=== PATIENT | male | born 1945 | race Caucasian/White ===

== ENCOUNTER 2017-01-16 21:43 | Outpatient (CLI) | payer BC, MEDICARE | END 2017-01-16 21:44 | disposition short-term general hospital (02) | LOC: EMS 21:43 | PROVIDERS: ATTEND Surgery | DX: R42 Dizziness and giddiness (principal); R11.0 Nausea; R47.9 Unspecified speech disturbances; R25.2 Cramp and spasm | CPT/HCPCS: A0170; A0425; A0427 ==

== ENCOUNTER 2017-12-05 08:35 | Outpatient (CLI) | payer BC, MEDICARE ==
[2017-12-05 11:40] LABS: ALBUMIN 4.1 g/dL (3.2-5.5); ALBUMIN/GLOBULIN RATIO 1.4 (1.0-2.2); ALKALINE PHOSPHATASE 66 IU/L (42-121); ALT ALANINE AMINOTRANSFERASE 21 IU/L (10-60); AST ASPARTATE AMINOTRANSFERASE 29 IU/L (10-42); BILIRUBIN,TOTAL 0.9 mg/dL (0.2-1.0); BUN - BLOOD UREA NITROGEN 13 mg/dL (6-20); CALCIUM 9.1 mg/dL (8.5-10.3); CARBON DIOXIDE - CO2 27 mmol/L (21-32); CHLORIDE 100 mmol/L (101-111); CHOL/HDL RATIO 2.6 (<5.0); CHOLESTEROL 154 mg/dL; CREATININE 0.8 mg/dL (0.6-1.2); CRP HIGH SENSITIVITY 2.2 mg/L; GFR - MDRD 94 (>89); GLUCOSE 93 mg/dL (70-100); HDL CHOLESTEROL 59 mg/dL; SODIUM 134 mmol/L (135-145)
[2017-12-05 11:41] LABS: PSA FREE 0.26 ng/mL (0.16-2.81); PSA TOTAL 1.2 ng/mL (0.000-2.000)
[2017-12-05 12:02] LABS: LDL CHOLESTEROL,DIRECT 74 mg/dL; LDLD/HDL RATIO 1.3 (<3.6)
[2017-12-08 20:11] LABS: HDL LARGE 4423 nmol/L (3382-9376); LDL PARTICLE NUMBER 1001 nmol/L (732-2035); LDL PATTERN A Pattern (A); LDL SMALL 154 nmol/L (85-473)
== END 2017-12-05 08:36 | disposition home or self-care (01) ==
LOC: LAB.F 08:35
PROVIDERS: ATTEND Internal Medicine Cardiovascular Disease
DX: I10 Essential (primary) hypertension (principal); E78.5 Hyperlipidemia, unspecified; I25.10 Atherosclerotic heart disease of native coronary artery without angina pectoris; I65.23 Occlusion and stenosis of bilateral carotid arteries
CPT/HCPCS: 36415; 80053; 80061; 81599; 82465; 83704; 83718; 83721; 84154; 84478; 86141